=== PATIENT | male | born 1960 | race Caucasian/White ===

== ENCOUNTER → 2017-10-09 | Outpatient (CLI) | payer OTHER ==
[2017-10-09 18:43] LABS: FREE T4 0.97 NG/DL (0.76-1.46)
[2017-10-12 00:07] LABS: TISSUE TRANSGLUTAMINASE IgA <2 U/mL (0-3)
== END ==
LOC: M LAB 16:26
DX: R19.7 Diarrhea, unspecified (principal)
CPT/HCPCS: 84443

== ENCOUNTER → 2017-10-14 | Outpatient (REF) | payer OTHER | LOC: M LAB REF 09:09 | DX: R19.7 Diarrhea, unspecified (principal) ==

== ENCOUNTER 2017-10-25 07:30 | Day surgery (SDC) | payer OTHER ==
[2017-10-25] MEDS: NS 1,000 ML IV (07:55)
[2017-10-25] MEDS ORDERED: PROPOFOL 200 MG/20 ML VIAL As Ordered ×4 (08:23→09:09)
[2017-10-25] MEDS ORDERED: LIDOCAINE 2% INJ 100 MG/5 ML SDV (FOR ANES.) As Ordered (08:23)
[2017-10-25] MEDS ORDERED: SIMETHICONE 40MG/0.6ML DROPS 30ML As Ordered (08:57)
[2017-10-25] MEDS ORDERED: GLUCAGON FOR INJ 1 MG VIAL (J1610) As Ordered (09:09)
== END 2017-10-25 10:11 | disposition home or self-care (01) ==
LOC: M OPP 07:30
DX: K52.9 Noninfective gastroenteritis and colitis, unspecified (principal); D12.2 Benign neoplasm of ascending colon; D12.4 Benign neoplasm of descending colon; K57.30 Diverticulosis of large intestine without perforation or abscess without bleeding; Z86.010 Personal history of colon polyps; K22.8 Other specified diseases of esophagus; K21.0 Gastro-esophageal reflux disease with esophagitis; R12 Heartburn; R11.0 Nausea; I10 Essential (primary) hypertension; E03.9 Hypothyroidism, unspecified; E78.00 Pure hypercholesterolemia, unspecified; Z88.8 Allergy status to other drugs, medicaments and biological substances
CPT/HCPCS: 45385

== ENCOUNTER → 2019-02-25 | Outpatient (CLI) | payer BC ==
[~2019-02-25] MED LIST: LEVO100T5 PO; LISI20TA20 PO; PRAV40TA2 PO; TERA2CAP3 PO
[2019-02-25 10:35] LABS: C REACTIVE PROTEIN QUANTITATIV 2.28 MG/DL (0.00-0.30); RHEUMATOID FACTOR QUANT < 10.0 IU/ML (<15.0)
== END ==
LOC: M SMT 08:31
PROVIDERS: ATTEND Internal Medicine Rheumatology
DX: M25.50 Pain in unspecified joint (principal)

== ENCOUNTER 2019-03-09 10:20 | Emergency (ER) | payer BC ==
[~2019-03-09] VITALS: Ht 182.9 cm; Wt 115.0 kg
[2019-03-09] MEDS ORDERED: PRED20TA PO ×2 (10:38→15:16)
[2019-03-09] MEDS ORDERED: GABA-1171 PO (10:38)
[2019-03-09] MEDS ORDERED: ACETAMINOPHEN 325 MG TAB PO ONE (12:30)
[2019-03-09] MEDS ORDERED: methylPREDNISolone INJ 40 MG/1 ML VIAL (J2920) IV ONE (12:30)
[2019-03-09 13:03] LABS: BASO # 0.1 10^3/uL (0.0-0.2); BASO % 0.4 % (0.0-1.0); EOS % 0.4 % (0.0-3.0); HEMATOCRIT 44.7 % (42.0-52.0); HEMOGLOBIN 14.8 g/dl (13.5-17.5); LYMPH # 2.1 10^3/uL (1.5-5.0); LYMPH % 18.6 % (24.0-44.0); MEAN CORPUSCULAR HEMOGLOBIN 31.7 pg (27.0-33.0); MEAN CORPUSCULAR HGB CONC 33.1 g/dl (32.0-36.5); MEAN CORPUSCULAR VOLUME 95.7 fl (80.0-96.0); MONO % 8.5 % (0.0-5.0); NEUTROPHILS # 7.9 10^3/uL (1.5-8.5); NEUTROPHILS % 70.9 % (36.0-66.0); PLATELET COUNT, AUTOMATED 319 10^3/uL (150-450); RED BLOOD COUNT 4.67 10^6/uL (4.30-6.10); WHITE BLOOD COUNT 11.2 10^3/uL (4.0-10.0)
[2019-03-09 13:11] LABS: BLOOD UREA NITROGEN 27 MG/DL (7-18); C REACTIVE PROTEIN QUANTITATIV 1.25 MG/DL (0.00-0.30); CALCIUM LEVEL 8.8 MG/DL (8.5-10.1); CARBON DIOXIDE LEVEL 28 MEQ/L (21-32); CHLORIDE LEVEL 104 MEQ/L (98-107); CREATININE FOR GFR 0.99 MG/DL (0.70-1.30); GLOMERULAR FILTRATION RATE > 60.0 (>56); GLUCOSE, FASTING 145 MG/DL (70-100); POTASSIUM SERUM 3.9 MEQ/L (3.5-5.1); SODIUM LEVEL 139 MEQ/L (136-145)
[2019-03-09 13:39] LABS: ERYTHROCYTE SEDIMENTATION RATE 25 mm/hr (0-20)
[2019-03-09] MEDS ORDERED: ENDO7.5T11 PO (15:12)
[2019-03-09 15:34] VITALS: BP 140/86
== END 2019-03-09 16:13 | disposition home or self-care (01) ==
LOC: M ED 10:20
DX: M13.0 Polyarthritis, unspecified (principal); I10 Essential (primary) hypertension; E03.9 Hypothyroidism, unspecified; Z79.899 Other long term (current) drug therapy; Z88.1 Allergy status to other antibiotic agents
CPT/HCPCS: 36415; 80048; 85025; 85652; 86140; 96374; 97161; 97530; 99284; J2920

== ENCOUNTER → 2019-05-11 | Outpatient (REF) | payer BC ==
[~2019-05-11] MED LIST changes: +ENDO7.5T11 PO; +GABA-1171 PO; +PRED20TA PO
[2019-05-11 12:52] LABS: BASO # 0.1 10^3/uL (0.0-0.2); BASO % 0.4 % (0.0-1.0); HEMATOCRIT 47.4 % (42.0-52.0); HEMOGLOBIN 15.3 g/dl (13.5-17.5); LYMPH % 6.9 % (24.0-44.0); MEAN CORPUSCULAR HEMOGLOBIN 31.1 pg (27.0-33.0); MEAN CORPUSCULAR HGB CONC 32.3 g/dl (32.0-36.5); MEAN CORPUSCULAR VOLUME 96.3 fl (80.0-96.0); MONO # 0.6 10^3/uL (0.0-0.8); NEUTROPHILS % 86.8 % (36.0-66.0); PLATELET COUNT, AUTOMATED 242 10^3/uL (150-450); RED BLOOD COUNT 4.92 10^6/uL (4.30-6.10); WHITE BLOOD COUNT 13.8 10^3/uL (4.0-10.0)
[2019-05-11 13:23] LABS: ERYTHROCYTE SEDIMENTATION RATE 7 mm/hr (0-20)
[2019-05-11 13:32] LABS: ALT/SGPT 31 U/L (12-78); BLOOD UREA NITROGEN 22 MG/DL (7-18); CALCIUM LEVEL 8.6 MG/DL (8.5-10.1); CARBON DIOXIDE LEVEL 29 MEQ/L (21-32); CHLORIDE LEVEL 102 MEQ/L (98-107); CPK CREATINE PHOSPHOKINASE 73 U/L (39-308); CREATININE FOR GFR 0.89 MG/DL (0.70-1.30); GLOMERULAR FILTRATION RATE > 60.0 (>56); GLUCOSE, FASTING 184 MG/DL (70-100); POTASSIUM SERUM 4.2 MEQ/L (3.5-5.1); SODIUM LEVEL 138 MEQ/L (136-145)
[2019-05-11 13:33] LABS: ALBUMIN 3.6 GM/DL (3.2-5.2); BILIRUBIN,TOTAL 0.4 MG/DL (0.2-1.0); C REACTIVE PROTEIN QUANTITATIV 0.46 MG/DL (0.00-0.30); THYROID STIMULATING HORMONE 0.486 uIU/ML (0.358-3.740); TOTAL PROTEIN 7.3 GM/DL (6.4-8.2)
== END ==
LOC: M SFHCRHEU 09:12
PROVIDERS: ATTEND Internal Medicine Rheumatology
DX: M35.3 Polymyalgia rheumatica (principal); M25.50 Pain in unspecified joint

== ENCOUNTER → 2020-12-20 | Outpatient (CLI) | payer BC ==
[~2020-12-20] MED LIST changes: +METHACHOLINE KIT (J7674) INH ONE
--- NOTE | 2020-12-20 13:58 | PFTRPT ---
Site: [facility], [address] [place], [address] ID: [id number] Name: YOSI KULKARNI Visit Date: 12/20/2020 Second ID: [id number] Referring Doctor: DEEPIKA Simpson, Jonathon Catalan Reviewing Doctor: Orion Saldivar MD Cylinder Press Operator Apprentice: Rowdy IYER RRT Age: 60 : 1960 Sex: Male Race: Height: 72.00 Inches Weight: 255.00 Lbs BSA: 2.36 Order IDs: [id number] Requested Test(s): <RESP-PFT.METH CHAL> Diagnosis: R06.00 of albuterol for post bronchodilator. Review Status: Not Reviewed Pre-Bronch Post-Bronch Pred Actual %Pred Actual %Chng SPIROMETRY FVC (L) 5.13 4.00 77 4.01 FEV1 (L) 3.89 3.37 86 3.28 -2 FEV1/FVC (%) 76 84 110 82 -2 FEF 25% (L/sec) 8.34 7.01 84 6.89 -1 FEF 50% (L/sec) 5.04 4.11 81 3.64 -11 FEF 75% (L/sec) 1.63 1.71 104 1.47 -14 FEF 25-75% (L/sec) 3.20 3.56 111 3.17 -11 FEF Max (L/sec) 9.73 9.45 97 8.86 -6 FIVC (L) 3.48 4.09 17 FIF 50% (L/sec) 4.74 4.94 104 6.95 40 FIF Max (L/sec) 5.86 7.00 19 Expiratory Time (sec) 5.60 4.39 -21 Back Extrap Vol (L) 0.10 0.12 16 Time To FEFmax (sec) 0.067 0.068 2
== END ==
LOC: M CARPUL 07:37
PROVIDERS: ATTEND Physician Assistant
DX: R06.00 Dyspnea, unspecified (principal)
CPT/HCPCS: 94070; J7674

== ENCOUNTER → 2021-02-16 | Outpatient (CLI) | payer BC ==
[~2021-02-16] MED LIST changes: +ATOR40TA75 PO; +HUMI40IN2 SC; -METHACHOLINE KIT (J7674) INH ONE
== END ==
LOC: M LABSMTC 10:16
PROVIDERS: ATTEND Anesthesiology
DX: Z01.812 Encounter for preprocedural laboratory examination (principal); Z20.822 Contact with and (suspected) exposure to COVID-19

== ENCOUNTER 2021-02-21 08:25 | Day surgery (SDC) | payer BC ==
[~2021-02-21] VITALS: Ht 182.9 cm; Wt 115.1 kg
[~2021-02-21 08:25] MED LIST changes: +NS 1,000 ML IV ONE
--- NOTE | 2021-02-21 10:00 | ROOR ---
Patient Name: Mike Armijo Procedure Date: 02/21/2021 9:40 AM Date of : 1960 Age: 60 Room: [facility] Gender: Male Note Status: Finalized Procedure: Colonoscopy Indications: High risk colon cancer surveillance: Personal history of colonic polyps, Last colonoscopy: October 2017 Providers: Cipriano Cabrales MD Referring MD: REGINALDO ROSAS Requesting Provider: Medicines: Monitored Anesthesia Care Complications: No immediate complications. Procedure: Pre-Anesthesia Assessment: - The heart rate, respiratory rate, oxygen saturations, blood pressure, adequacy of pulmonary ventilation, and response to care were monitored throughout the procedure. The Colonoscope was introduced through the anus and advanced to the terminal ileum, with identification of the appendiceal orifice and IC valve. The colonoscopy was performed without difficulty. The patient tolerated the procedure well. The quality of the bowel preparation was good. Findings: The perianal and digital rectal examinations were normal. Two sessile polyps were found in the sigmoid colon and descending colon. The polyps were 4 to 5 mm in size. These polyps were removed with a cold snare. Resection and retrieval were complete. Multiple small and large-mouthed diverticula were found in the sigmoid colon. Non-bleeding internal hemorrhoids were found during retroflexion. The hemorrhoids were medium-sized. The exam was otherwise without abnormality on direct and retroflexion views. Impression: - Two 4 to 5 mm polyps in the sigmoid colon and in the descending colon, removed with a cold snare. Resected and retrieved. - Diverticulosis in the sigmoid colon. - Non-bleeding internal hemorrhoids. - The examination was otherwise normal on direct and retroflexion views. Recommendation: - Repeat colonoscopy in 5 years for surveillance. Procedure Code(s): --- Professional --- 88671, Colonoscopy, flexible; with removal of tumor(s), polyp(s), or other lesion(s) by snare technique Diagnosis Code(s): --- Professional --- K57.30, Diverticulosis of large intestine without perforation or abscess without bleeding K64.8, Other hemorrhoids K63.5, Polyp of colon Z86.010, Personal history of colonic polyps CPT copyright 2019 [employer]. All rights reserved. The codes documented in this report are preliminary and upon television mechanic review may be revised to meet current compliance requirements. Cipriano Cabrales MD Cipriano Cabrales MD 02/21/2021 9:59:33 AM Electronically signed by Cipriano Cabrales MD Number of Addenda: 0 Note Initiated On: 02/21/2021 9:40 AM Estimated Blood Loss: Estimated blood loss: none.
[2021-02-21] MEDS ORDERED: LIDOCAINE 2% 100MG/5ML SDV (FOR ANES.) As Ordered ONE (10:08)
[2021-02-21] MEDS ORDERED: propofoL 200 MG/20 ML VIAL As Ordered ONE (10:08)
[2021-02-21 10:34] VITALS: BP 142/96
== END 2021-02-21 10:36 | disposition home or self-care (01) ==
LOC: M OPP 08:25
PROVIDERS: ATTEND Internal Medicine Gastroenterology
DX: Z12.11 Encounter for screening for malignant neoplasm of colon (principal); Z86.010 Personal history of colon polyps; D12.4 Benign neoplasm of descending colon; D12.5 Benign neoplasm of sigmoid colon; K57.30 Diverticulosis of large intestine without perforation or abscess without bleeding; K64.8 Other hemorrhoids; Z79.899 Other long term (current) drug therapy; Z88.8 Allergy status to other drugs, medicaments and biological substances; Z87.891 Personal history of nicotine dependence

== ENCOUNTER → 2021-03-30 | Outpatient (CLI) | payer BC ==
[~2021-03-30] MED LIST changes: -NS 1,000 ML IV ONE
== END ==
LOC: M LABSMTC 11:06
PROVIDERS: ATTEND Anesthesiology
DX: Z01.818 Encounter for other preprocedural examination (principal); Z11.52 Encounter for screening for COVID-19

== ENCOUNTER → 2021-05-04 | Outpatient (CLI) | payer BC | LOC: M LABSMTC 10:04 | PROVIDERS: ATTEND Anesthesiology | DX: Z01.812 Encounter for preprocedural laboratory examination (principal); Z20.822 Contact with and (suspected) exposure to COVID-19 ==

== ENCOUNTER 2021-05-09 09:55 | Day surgery (SDC) | payer BC ==
[~2021-05-09] VITALS: Ht 182.9 cm; Wt 113.9 kg
[~2021-05-09 09:55] MED LIST changes: -LISI20TA20 PO; +LISI20TA37 PO; +LR 1,000 ML IV ONE; +ceFAZolin SOD 2 GM in IV 1 EA IV ONE
[2021-05-09] MEDS ORDERED: METH2.5T48 PO (11:07)
[2021-05-09] MEDS ORDERED: LIDOCAINE 2% 100MG/5ML SDV (FOR ANES.) As Ordered ONE ×2 (12:56→13:20)
[2021-05-09] MEDS ORDERED: propofoL 200 MG/20 ML VIAL As Ordered ONE (13:07)
[2021-05-09] MEDS ORDERED: ROCURONIUM BROMIDE 50 MG/5 ML VIAL As Ordered ONE (13:08)
[2021-05-09] MEDS ORDERED: ONDANSETRON 4MG/2ML VIAL As Ordered ONE (13:08)
[2021-05-09] MEDS ORDERED: MIDAZOLAM INJ 2MG/2ML VIAL (J2250 PER 1MG) As Ordered ONE (13:08)
[2021-05-09] MEDS ORDERED: fentaNYL 100 MCG/2 ML INJECTION As Ordered ONE (13:08)
[2021-05-09] MEDS ORDERED: dexameTHASONE 4 MG/ML 1ML VIAL (J1100 PER 1MG) As Ordered ONE (13:08)
[2021-05-09] MEDS ORDERED: KETOROLAC 60MG 2ML VIAL As Ordered ONE (13:21)
[2021-05-09] MEDS ORDERED: BUPIVACAINE LIPOSOME/PF 1.3% 20ML VIAL (13.3MG/ML)(EXPAREL)(C9290 PER1MG) As Ordered ONE (13:51)
[2021-05-09] MEDS ORDERED: BUPIVACAINE HCL 0.25% 10ML VIAL As Ordered ONE (13:51)
[2021-05-09] MEDS ORDERED: ACETAMINOPHEN 1000MG 100ML IV BTL (OFIRMEV) (J0131 PER 10MG) As Ordered ONE (14:36)
[2021-05-09] MEDS ORDERED: SUGAMMADEX SODIUM 500 MG/5 ML VIAL (BRIDION) As Ordered ONE (14:42)
[2021-05-09] MEDS ORDERED: PERCOCET 5MG/325MG TAB PO PRN (15:15)
[2021-05-09] MEDS ORDERED: fentaNYL 100 MCG/2 ML INJECTION IV PRN (15:15)
[2021-05-09] MEDS ORDERED: LR 1,000 ML IV SCH (15:15)
[2021-05-09] MEDS ORDERED: HYDROMORPHONE HCL 0.5 MG/ 0.5 ML SYRINGE (J1170 PER 1) IV PRN (15:15)
[2021-05-09] MEDS ORDERED: ONDANSETRON 4MG/2ML VIAL IV PRN (15:15)
[2021-05-09] MEDS ORDERED: oxyCODONE 5MG TAB PO PRN (15:15)
[2021-05-09] MEDS ORDERED: NS 1,000 ML IV SCH (15:15)
[2021-05-09 16:55] VITALS: BP 142/88
== END 2021-05-09 17:00 | disposition home or self-care (01) ==
LOC: M SDC 09:55
PROVIDERS: ATTEND Surgery
DX: K42.9 Umbilical hernia without obstruction or gangrene (principal); I10 Essential (primary) hypertension; E03.9 Hypothyroidism, unspecified; E78.5 Hyperlipidemia, unspecified; Z79.899 Other long term (current) drug therapy; Z88.8 Allergy status to other drugs, medicaments and biological substances
CPT/HCPCS: 49585; 88302; C9290; J0131; J0690; J1100; J1885; J2250; J2405; J3010

== ENCOUNTER → 2021-10-02 | Outpatient (CLI) | payer BC ==
[~2021-10-02] MED LIST changes: -LR 1,000 ML IV ONE; +METH2.5T48 PO; -ceFAZolin SOD 2 GM in IV 1 EA IV ONE
== END ==
LOC: M PLAIMG 12:43
PROVIDERS: ATTEND Physician Assistant
DX: R91.8 Other nonspecific abnormal finding of lung field (principal)

== ENCOUNTER → 2023-01-18 | Outpatient (CLI) | payer BC ==
[2023-01-18 19:07] LABS: HEMATOCRIT 40.7 % (42.0-52.0); HEMOGLOBIN 13.9 g/dl (13.5-17.5); MEAN CORPUSCULAR HEMOGLOBIN 32.6 pg (27.0-33.0); MEAN CORPUSCULAR HGB CONC 34.2 g/dl (32.0-36.5); MEAN CORPUSCULAR VOLUME 95.5 fl (80.0-96.0); PLATELET COUNT, AUTOMATED 183 10^3/uL (150-450); RED BLOOD COUNT 4.26 10^6/uL (4.30-6.10); WHITE BLOOD COUNT 5.7 10^3/uL (4.0-10.0)
[2023-01-18 19:28] LABS: ALBUMIN 3.2 G/DL (3.2-5.2); ALKALINE PHOSPHATASE 175 U/L (46-116); ALT/SGPT 146 U/L (7.0-40); AST/SGOT 99 U/L (<34); BILIRUBIN,TOTAL 0.7 MG/DL (0.3-1.2); BLOOD UREA NITROGEN 19 MG/DL (9-23); CALCIUM LEVEL 8.8 MG/DL (8.3-10.6); CARBON DIOXIDE LEVEL 31 MMOL/L (20-31); CHLORIDE LEVEL 101 MMOL/L (98-107); CREATININE FOR GFR 1.03 MG/DL (0.70-1.30); GLOMERULAR FILTRATION RATE > 60.0 (>49); GLUCOSE, FASTING 132 MG/DL (74-106); SODIUM LEVEL 141 MMOL/L (136-145); TOTAL PROTEIN 6.7 G/DL (5.7-8.2)
== END ==
LOC: M WUC 15:26
PROVIDERS: ATTEND Physician Assistant
DX: S90.562S Insect bite (nonvenomous), left ankle, sequela (principal); R61 Generalized hyperhidrosis; R79.82 Elevated C-reactive protein (CRP)

== ENCOUNTER → 2023-02-13 | Outpatient (CLI) | payer BC | LOC: M WUC 11:48 | PROVIDERS: ATTEND Physician Assistant | DX: S23.41XA Sprain of ribs, initial encounter (principal); W18.30XA Fall on same level, unspecified, initial encounter; Y92.009 Unspecified place in unspecified non-institutional (private) residence as the place of occurrence of the external cause ==

== ENCOUNTER 2023-03-11 17:57 | Inpatient (IN) | payer BC ==
[~2023-03-11] VITALS: Ht 182.9 cm; Wt 98.8 kg
[2023-03-11 19:42] LABS: VENOUS BASE EXCESS 1.6 (-2.0-2.0); VENOUS HCO3 27.8 MMOL/L (23.0-27.0); VENOUS O2 SATURATION 72.5 % (60.0-80.0); VENOUS PARTIAL PRESSURE CO2 49.5 mmHg (38.0-50.0); VENOUS PARTIAL PRESSURE O2 39.4 mmHg (30.0-50.0); VENOUS PH 7.367 UNITS (7.330-7.430); VENOUS STANDARD HCO3 25.3 MMOL/L; VENOUS TOTAL CO2 29.3 MMOL/L (24.0-28.0)
[2023-03-11] MEDS ORDERED: HYDROMORPHONE HCL 0.5 MG/ 0.5 ML SYRINGE IV PRN (19:45)
[2023-03-11 19:47] LABS: BASO # 0.1 10^3/uL (0.0-0.2); BASO % 0.4 % (0.0-1.0); EOS # 0.2 10^3/uL (0.0-0.5); EOS % 1.3 % (0.0-3.0); HEMATOCRIT 40.9 % (42.0-52.0); LYMPH # 3.1 10^3/uL (1.5-5.0); LYMPH % 25.7 % (24.0-44.0); MEAN CORPUSCULAR HEMOGLOBIN 32.6 pg (27.0-33.0); MEAN CORPUSCULAR HGB CONC 34.2 g/dl (32.0-36.5); MEAN CORPUSCULAR VOLUME 95.1 fl (80.0-96.0); MONO # 0.9 10^3/uL (0.0-0.8); MONO % 7.1 % (2.0-8.0); NEUTROPHILS # 7.8 10^3/uL (1.5-8.5); NEUTROPHILS % 64.9 % (36.0-66.0); PLATELET COUNT, AUTOMATED 245 10^3/uL (150-450); WHITE BLOOD COUNT 12.1 10^3/uL (4.0-10.0)
[2023-03-11 20:02] LABS: INR 1.08; PROTHROMBIN TIME 13.7 SECONDS (12.5-14.5)
[2023-03-11 20:18] LABS: CK-MB VALUE MASS 1.8 NG/ML (<3.6)
[2023-03-11 20:20] LABS: CPK CREATINE PHOSPHOKINASE 83 U/L (46-171); MB/CK RELATIVE INDEX 2.16 (< OR =4)
[2023-03-11 20:21] LABS: ALBUMIN 2.9 G/DL (3.2-5.2); ALKALINE PHOSPHATASE 69 U/L (46-116); ALT/SGPT 33 U/L (7.0-40); AST/SGOT 23 U/L (<34); BILIRUBIN,DIRECT 0.3 MG/DL (<0.4); BILIRUBIN,TOTAL 0.9 MG/DL (0.3-1.2); BLOOD UREA NITROGEN 18 MG/DL (9-23); CALCIUM LEVEL 8.5 MG/DL (8.3-10.6); CARBON DIOXIDE LEVEL 33 MMOL/L (20-31); CHLORIDE LEVEL 100 MMOL/L (98-107); CREATININE FOR GFR 0.66 MG/DL (0.70-1.30); GLOMERULAR FILTRATION RATE > 60.0 (>49); GLUCOSE, FASTING 150 MG/DL (74-106); POTASSIUM SERUM 3.7 MMOL/L (3.5-5.1); SODIUM LEVEL 138 MMOL/L (136-145); TOTAL PROTEIN 6.7 G/DL (5.7-8.2)
[2023-03-11 20:23] LABS: THYROID STIMULATING HORMONE 1.307 uIU/ML (0.55-4.78)
[2023-03-11 20:27] LABS: PROCALCITONIN <0.04 ng/ml
[2023-03-11] MEDS ORDERED: ONDANSETRON 4MG 2ML VIAL IV ONE (20:40)
[2023-03-11 21:03] LABS: ERYTHROCYTE SEDIMENTATION RATE 61 mm/hr (0-20)
[2023-03-11 22:29] LABS: CK-MB VALUE MASS 1.3 NG/ML (<3.6)
[2023-03-11 22:32] LABS: MB/CK RELATIVE INDEX 1.75 (< OR =4)
[2023-03-12] VITALS (7 sets, daily range): BP systolic 138–190; BP diastolic 88–125; TEMP 98.1–98.8; O2SAT 90–98
[2023-03-12] MEDS ORDERED: ACETAMINOPHEN TAB 650MG DOSE (2X325MG) PO PRN (00:30)
[2023-03-12] MEDS: HYDROmorphone 2 MG TAB PO PRN ×2 (01:10→06:50)
[2023-03-12] MEDS ORDERED: CYCL5TAB PO (01:27)
[2023-03-12] MEDS ORDERED: IBUP1TAB7 PO (01:27)
[2023-03-12] MEDS ORDERED: DOXY100T PO (01:27)
[2023-03-12] MEDS ORDERED: GABA-282 PO (01:27)
[2023-03-12] MEDS ORDERED: FOLI1TAB11 PO (01:27)
[2023-03-12] MEDS ORDERED: METH2.5T48 PO (01:27)
[2023-03-12] MEDS ORDERED: HOME MED LIST COMPLETE! XX SCH (01:30)
[2023-03-12] MEDS ORDERED: CYCLOBENZAPRINE 5MG TABLET PO PRN (02:00)
[2023-03-12] MEDS ORDERED: HYDROMORPHONE HCL 0.5 MG/ 0.5 ML SYRINGE IV ONE (02:30)
[2023-03-12] MEDS: DOXYCYCLINE HYCLATE 100MG TABLET PO SCH ×2 (04:56→20:09)
[2023-03-12] MEDS: LEVOTHYROXINE 100MCG TABLET (0.1MG) PO SCH (04:56)
[2023-03-12] MEDS ORDERED: ACETAMINOPHEN *IV* 1,000 MG in IV 1 EA IV ONE (05:00)
[2023-03-12] MEDS ORDERED: MORPHINE 10 MG/ML 1ML VIAL IV ONE (06:00)
[2023-03-12 06:13] LABS: BLOOD UREA NITROGEN 16 MG/DL (9-23); CALCIUM LEVEL 8.4 MG/DL (8.3-10.6); CARBON DIOXIDE LEVEL 32 MMOL/L (20-31); CHLORIDE LEVEL 98 MMOL/L (98-107); CREATININE FOR GFR 0.66 MG/DL (0.70-1.30); GLOMERULAR FILTRATION RATE > 60.0 (>49); GLUCOSE, FASTING 160 MG/DL (74-106); POTASSIUM SERUM 4.1 MMOL/L (3.5-5.1); SODIUM LEVEL 134 MMOL/L (136-145)
[2023-03-12 06:24] LABS: CK-MB VALUE MASS 2.6 NG/ML (<3.6)
[2023-03-12 06:27] LABS: MB/CK RELATIVE INDEX 3.2 (< OR =4)
[2023-03-12 08:27] LABS: BASO # 0.1 10^3/uL (0.0-0.2); BASO % 0.7 % (0.0-1.0); EOS # 0.3 10^3/uL (0.0-0.5); EOS % 2.7 % (0.0-3.0); HEMATOCRIT 41.7 % (42.0-52.0); HEMOGLOBIN 14.1 g/dl (13.5-17.5); LYMPH # 3.8 10^3/uL (1.5-5.0); MEAN CORPUSCULAR HEMOGLOBIN 32.4 pg (27.0-33.0); MEAN CORPUSCULAR HGB CONC 33.8 g/dl (32.0-36.5); MEAN CORPUSCULAR VOLUME 95.9 fl (80.0-96.0); MONO # 0.9 10^3/uL (0.0-0.8); MONO % 8.2 % (2.0-8.0); NEUTROPHILS # 6.1 10^3/uL (1.5-8.5); NEUTROPHILS % 54.1 % (36.0-66.0); PLATELET COUNT, AUTOMATED 242 10^3/uL (150-450); RED BLOOD COUNT 4.35 10^6/uL (4.30-6.10); WHITE BLOOD COUNT 11.3 10^3/uL (4.0-10.0)
[2023-03-12 08:40] LABS: ERYTHROCYTE SEDIMENTATION RATE 57 mm/hr (0-20)
[2023-03-12] MEDS ORDERED: ISOVUE-370 76% 100ML VIAL As Ordered ONE (08:58)
[2023-03-12] MEDS ORDERED: DOCUSATE SODIUM 100MG CAPSULE PO SCH (09:00)
[2023-03-12 09:25] LABS: CK-MB VALUE MASS 1.3 NG/ML (<3.6)
[2023-03-12 09:30] LABS: MB/CK RELATIVE INDEX 1.6 (< OR =4)
[2023-03-12] MEDS: ATORVASTATIN 20 MG TAB PO SCH (09:44)
[2023-03-12] MEDS: FOLIC ACID 1MG TAB PO SCH (09:45)
[2023-03-12] MEDS: GABAPENTIN 100 MG CAP PO SCH ×2 (09:46→20:10)
[2023-03-12] MEDS: predniSONE 20 MG TAB PO SCH (09:51)
[2023-03-12] MEDS: TERAZOSIN 1 MG CAP PO SCH (10:58)
[2023-03-12] MEDS: PERCOCET 5MG/325MG TAB PO PRN ×2 (11:04→18:38)
[2023-03-12 11:44] LABS: CK-MB VALUE MASS 1.3 NG/ML (<3.6)
[2023-03-12] MEDS ORDERED: BISACODYL 10MG SUPP PR ONE (11:45)
[2023-03-12 11:47] LABS: MB/CK RELATIVE INDEX 1.66 (< OR =4)
[2023-03-12] MEDS: MIRALAX *UNIT DOSE* 17GM PACKET PO SCH ×2 (12:43→20:10)
[2023-03-12] MEDS: MOM 30ML SUSPENSION UDC PO SCH ×2 (12:43→20:09)
[2023-03-12] MEDS: SENOKOT S TAB PO SCH ×2 (12:43→20:09)
[2023-03-12] MEDS: HEPARIN SOD (PORCINE) 5000UNITS/ML 1ML VIAL/SYRINGE SQ SCH ×2 (15:15→20:10)
[2023-03-13] MEDS: PERCOCET 5MG/325MG TAB PO PRN ×3 (00:31→14:45)
[2023-03-13] MEDS: LEVOTHYROXINE 100MCG TABLET (0.1MG) PO SCH (05:36)
[2023-03-13] MEDS: HEPARIN SOD (PORCINE) 5000UNITS/ML 1ML VIAL/SYRINGE SQ SCH ×2 (05:37→13:27)
[2023-03-13 06:00] VITALS: BP 113/77; TEMP 97; O2SAT 98
[2023-03-13 06:33] LABS: HEMOGLOBIN 13.3 g/dl (13.5-17.5); MEAN CORPUSCULAR HEMOGLOBIN 33.3 pg (27.0-33.0); PLATELET COUNT, AUTOMATED 263 10^3/uL (150-450); WHITE BLOOD COUNT 12.1 10^3/uL (4.0-10.0)
[2023-03-13 06:59] LABS: BLOOD UREA NITROGEN 19 MG/DL (9-23); CALCIUM LEVEL 8.2 MG/DL (8.3-10.6); CARBON DIOXIDE LEVEL 30 MMOL/L (20-31); CHLORIDE LEVEL 98 MMOL/L (98-107); CREATININE FOR GFR 0.74 MG/DL (0.70-1.30); GLOMERULAR FILTRATION RATE > 60.0 (>49); GLUCOSE, FASTING 115 MG/DL (74-106); MAGNESIUM LEVEL 2.1 MG/DL (1.8-2.4); POTASSIUM SERUM 3.6 MMOL/L (3.5-5.1); SODIUM LEVEL 135 MMOL/L (136-145)
[2023-03-13 07:27] LABS: EOSINOPHILS 2 % (0-3); LYMPHOCYTES 30 % (16-44); MONOCYTES 13 % (0-5); NEUTROPHILS 54 % (28-66)
[2023-03-13 07:28] LABS: PLATELET ESTIMATE NORMAL (NORMAL)
[2023-03-13 07:29] LABS: ANISOCYTOSIS 1+; HYPOCHROMASIA 1+
[2023-03-13 07:30] LABS: OVALOCYTES 1+; POIKILOCYTOSIS 1+
[2023-03-13 08:47] VITALS: BP 120/80
[2023-03-13] MEDS: TERAZOSIN 1 MG CAP PO SCH (08:47)
[2023-03-13] MEDS: ATORVASTATIN 20 MG TAB PO SCH (08:48)
[2023-03-13] MEDS: SENOKOT S TAB PO SCH (08:48)
[2023-03-13] MEDS: GABAPENTIN 100 MG CAP PO SCH (08:48)
[2023-03-13] MEDS: FOLIC ACID 1MG TAB PO SCH (08:48)
[2023-03-13] MEDS: predniSONE 20 MG TAB PO SCH (08:48)
[2023-03-13] MEDS: MIRALAX *UNIT DOSE* 17GM PACKET PO SCH (08:48)
[2023-03-13] MEDS: MOM 30ML SUSPENSION UDC PO SCH (08:48)
[2023-03-13] MEDS: DOXYCYCLINE HYCLATE 100MG TABLET PO SCH (08:48)
[2023-03-13] MEDS ORDERED: OXYC1TAB23 PO (10:13)
[2023-03-13] MEDS ORDERED: DOXY100T PO (10:13)
[2023-03-13] MEDS ORDERED: PRED10TA2 PO (10:13)
[2023-03-13 14:00] VITALS: BP 107/77; TEMP 98.4; O2SAT 93
[2023-03-15] MEDS ORDERED: GABAPENTIN 100 MG CAP PO SCH (09:00)
== END 2023-03-13 15:02 | disposition home or self-care (01) | DRG 346 ==
LOC: M ED 17:57 → EDBD 17:57 → M ED INP 03-12 00:28 → M MSPAV 03-12 04:34
PROVIDERS: ADMIT Internal Medicine; ATTEND Internal Medicine
DX: M06.9 Rheumatoid arthritis, unspecified (principal); I10 Essential (primary) hypertension; A69.22 Other neurologic disorders in Lyme disease; E03.9 Hypothyroidism, unspecified; M45.2 Ankylosing spondylitis of cervical region; R07.9 Chest pain, unspecified; Z88.8 Allergy status to other drugs, medicaments and biological substances; Z79.899 Other long term (current) drug therapy; E78.00 Pure hypercholesterolemia, unspecified

== ENCOUNTER 2023-03-21 11:10 | Outpatient (CLI) | payer BC ==
[~2023-03-21] VITALS: Ht 182.9 cm; Wt 101.1 kg
[~2023-03-21 11:10] MED LIST changes: +CYCL5TAB PO; +DOXY100T PO; +FOLI1TAB11 PO; +GABA-282 PO; +IBUP1TAB7 PO; +OXYC1TAB23 PO; +PRED10TA2 PO
[2023-03-21 11:42] LABS: BASO # 0.1 10^3/uL (0.0-0.2); BASO % 0.8 % (0.0-1.0); EOS % 0.1 % (0.0-3.0); HEMATOCRIT 39.2 % (42.0-52.0); HEMOGLOBIN 13.5 g/dl (13.5-17.5); LYMPH # 2.2 10^3/uL (1.5-5.0); MEAN CORPUSCULAR HEMOGLOBIN 32.8 pg (27.0-33.0); MEAN CORPUSCULAR HGB CONC 34.4 g/dl (32.0-36.5); MEAN CORPUSCULAR VOLUME 95.4 fl (80.0-96.0); MONO # 0.5 10^3/uL (0.0-0.8); MONO % 6.3 % (2.0-8.0); NEUTROPHILS # 4.6 10^3/uL (1.5-8.5); NEUTROPHILS % 61.6 % (36.0-66.0); PLATELET COUNT, AUTOMATED 298 10^3/uL (150-450); RED BLOOD COUNT 4.11 10^6/uL (4.30-6.10); WHITE BLOOD COUNT 7.4 10^3/uL (4.0-10.0)
[2023-03-21 11:51] LABS: ERYTHROCYTE SEDIMENTATION RATE 58 mm/hr (0-20)
[2023-03-22 12:00] VITALS: BP 109/67; O2SAT 98
== END 2023-03-21 12:21 ==
LOC: M INFU 11:10
PROVIDERS: ATTEND Internal Medicine Infectious Disease
DX: A69.20 Lyme disease, unspecified (principal); Z88.6 Allergy status to analgesic agent

== ENCOUNTER 2023-03-21 11:34 | Outpatient (CLI) | payer BC ==
[~2023-03-21] VITALS: Ht 182.9 cm; Wt 101.1 kg
[2023-03-21 11:15] VITALS: BP 154/93; O2SAT 95
[2023-03-21] MEDS ORDERED: cefTRIAXone SOD 2 GM in D5W MINI-BAG PLUS 50 ML IV ONE (12:00)
[2023-03-21 12:21] VITALS: BP_SYST 154; BP_SYST 159; BP_DIAS 76; BP_DIAS 89; O2SAT 96; O2SAT 97
== END 2023-03-21 12:21 ==
LOC: M INFU 11:34
PROVIDERS: ATTEND Internal Medicine Infectious Disease
DX: A69.20 Lyme disease, unspecified (principal); Z88.6 Allergy status to analgesic agent
CPT/HCPCS: 36592; 85025; 85652; 86140; 96365; J0696

== ENCOUNTER 2023-03-22 11:30 | Outpatient (CLI) | payer BC ==
[~2023-03-22] VITALS: Ht 182.9 cm; Wt 101.1 kg
[2023-03-22 12:00] VITALS: BP 109/67; O2SAT 98
[2023-03-22] MEDS ORDERED: cefTRIAXone SOD 2 GM in D5W MINI-BAG PLUS 50 ML IV ONE (12:00)
[2023-03-22 13:24] VITALS: BP 117/75; O2SAT 96
== END 2023-03-22 13:30 ==
LOC: M INFU 11:30
PROVIDERS: ATTEND Internal Medicine Infectious Disease
DX: A69.20 Lyme disease, unspecified (principal); Z88.6 Allergy status to analgesic agent
CPT/HCPCS: 96365; J0696

== ENCOUNTER 2023-03-23 10:07 | Outpatient (CLI) | payer BC ==
[2023-03-23] MEDS ORDERED: cefTRIAXone SOD 2 GM in D5W MINI-BAG PLUS 50 ML IV ONE (11:00)
== END 2023-03-23 11:16 | disposition home or self-care (01) ==
LOC: M OPCLI4PV 10:07 → M MSPAV 10:11 → M OPCLI4PV 11:16
PROVIDERS: ATTEND Internal Medicine Infectious Disease
DX: A69.20 Lyme disease, unspecified (principal); Z88.6 Allergy status to analgesic agent
CPT/HCPCS: 96365; J0696

== ENCOUNTER 2023-03-24 10:10 | Outpatient (CLI) | payer BC ==
[~2023-03-24] VITALS: Ht 182.9 cm; Wt 100.0 kg
[2023-03-24 10:18] VITALS: BP 135/84; O2SAT 94
[2023-03-24] MEDS ORDERED: cefTRIAXone SOD 2 GM in D5W MINI-BAG PLUS 50 ML IV ONE (11:00)
[2023-03-24 11:20] VITALS: BP 148/84; O2SAT 96
== END 2023-03-24 11:20 | disposition home or self-care (01) ==
LOC: M OPCLI4PR 10:10 → M MS4PR 10:14 → M OPCLI4PR 11:20
PROVIDERS: ATTEND Internal Medicine Infectious Disease
DX: A69.20 Lyme disease, unspecified (principal); Z88.6 Allergy status to analgesic agent
CPT/HCPCS: 96365; J0696

== ENCOUNTER 2023-03-25 11:35 | Outpatient (CLI) | payer BC ==
[~2023-03-25] VITALS: Ht 182.9 cm; Wt 100.0 kg
[2023-03-25 11:35] VITALS: BP 143/93; O2SAT 20
[~2023-03-25 11:35] MED LIST changes: +cefTRIAXone SOD 2 GM in D5W MINI-BAG PLUS 50 ML IV ONE
[2023-03-25 12:30] VITALS: BP 120/88; O2SAT 98
== END 2023-03-25 12:30 | disposition home or self-care (01) ==
LOC: M INFU 11:35
PROVIDERS: ATTEND Internal Medicine Infectious Disease
DX: A69.20 Lyme disease, unspecified (principal); Z88.8 Allergy status to other drugs, medicaments and biological substances
CPT/HCPCS: 96365; J0696

== ENCOUNTER 2023-03-26 12:45 | Outpatient (CLI) | payer BC ==
[~2023-03-26] VITALS: Ht 182.9 cm; Wt 101.1 kg
[2023-03-26 12:45] VITALS: BP 130/86; O2SAT 96
== END 2023-03-26 13:35 ==
LOC: M INFU 12:45
PROVIDERS: ATTEND Internal Medicine Infectious Disease
DX: A69.20 Lyme disease, unspecified (principal); Z88.8 Allergy status to other drugs, medicaments and biological substances
CPT/HCPCS: 96365; J0696

== ENCOUNTER 2023-03-27 12:45 | Outpatient (CLI) | payer BC ==
[~2023-03-27] VITALS: Ht 182.9 cm; Wt 101.1 kg
[~2023-03-27 12:45] MED LIST changes: -cefTRIAXone SOD 2 GM in D5W MINI-BAG PLUS 50 ML IV ONE
[2023-03-27 13:00] VITALS: BP 172/93; O2SAT 95
[2023-03-27] MEDS ORDERED: cefTRIAXone SOD 2 GM in D5W MINI-BAG PLUS 50 ML IV ONE (13:00)
[2023-03-27 13:34] VITALS: BP 154/94; O2SAT 95
== END 2023-03-27 16:00 ==
LOC: M INFU 12:45
PROVIDERS: ATTEND Internal Medicine Infectious Disease
DX: A69.20 Lyme disease, unspecified (principal); Z88.6 Allergy status to analgesic agent
CPT/HCPCS: 96365; J0696

== ENCOUNTER → 2023-03-28 | Outpatient (CLI) | payer BC ==
[~2023-03-28] MED LIST changes: +LIDOCAINE 1% MDV 20ML VIAL As Ordered ONE
[2023-03-28 08:12] VITALS: BP 166/98; TEMP 98.1; O2SAT 93
== END ==
LOC: M IRPRO 08:04
PROVIDERS: ATTEND Internal Medicine Infectious Disease
DX: A69.20 Lyme disease, unspecified (principal)
CPT/HCPCS: 36569; C1751

== ENCOUNTER → 2023-04-02 | Outpatient (REF) | payer BC ==
[~2023-04-02] MED LIST changes: -LIDOCAINE 1% MDV 20ML VIAL As Ordered ONE
[2023-04-02 11:55] LABS: BASO % 0.6 % (0.0-1.0); EOS # 0.2 10^3/uL (0.0-0.5); EOS % 2.8 % (0.0-3.0); HEMATOCRIT 39.4 % (42.0-52.0); HEMOGLOBIN 13.5 g/dl (13.5-17.5); LYMPH # 2.2 10^3/uL (1.5-5.0); LYMPH % 36.2 % (24.0-44.0); MEAN CORPUSCULAR HEMOGLOBIN 33.3 pg (27.0-33.0); MEAN CORPUSCULAR HGB CONC 34.3 g/dl (32.0-36.5); MEAN CORPUSCULAR VOLUME 97.3 fl (80.0-96.0); MONO # 0.6 10^3/uL (0.0-0.8); MONO % 9.9 % (2.0-8.0); NEUTROPHILS # 3.1 10^3/uL (1.5-8.5); NEUTROPHILS % 50.3 % (36.0-66.0); PLATELET COUNT, AUTOMATED 176 10^3/uL (150-450); RED BLOOD COUNT 4.05 10^6/uL (4.30-6.10); WHITE BLOOD COUNT 6.2 10^3/uL (4.0-10.0)
[2023-04-02 12:13] LABS: C REACTIVE PROTEIN QUANTITATIV < 0.40 MG/DL (<1.0)
[2023-04-02 12:15] LABS: ALKALINE PHOSPHATASE 62 U/L (46-116); ALT/SGPT 48 U/L (7.0-40); AST/SGOT 27 U/L (<34); BILIRUBIN,TOTAL 0.7 MG/DL (0.3-1.2); BLOOD UREA NITROGEN 13 MG/DL (9-23); CALCIUM LEVEL 8.3 MG/DL (8.3-10.6); CARBON DIOXIDE LEVEL 27 MMOL/L (20-31); CHLORIDE LEVEL 103 MMOL/L (98-107); CREATININE FOR GFR 0.68 MG/DL (0.70-1.30); GLOMERULAR FILTRATION RATE > 60.0 (>49); GLUCOSE, FASTING 228 MG/DL (74-106); POTASSIUM SERUM 3.9 MMOL/L (3.5-5.1); SODIUM LEVEL 139 MMOL/L (136-145); TOTAL PROTEIN 6.3 G/DL (5.7-8.2)
[2023-04-02 12:19] LABS: ERYTHROCYTE SEDIMENTATION RATE 36 mm/hr (0-20)
== END ==
LOC: M LAB REF 10:52
PROVIDERS: ATTEND Internal Medicine Infectious Disease
DX: A69.20 Lyme disease, unspecified (principal)

== ENCOUNTER → 2023-04-10 | Outpatient (REF) | payer BC ==
[2023-04-10 11:52] LABS: BASO # 0.1 10^3/uL (0.0-0.2); BASO % 1.5 % (0.0-1.0); EOS # 0.2 10^3/uL (0.0-0.5); EOS % 4.6 % (0.0-3.0); HEMATOCRIT 40.3 % (42.0-52.0); HEMOGLOBIN 13.7 g/dl (13.5-17.5); LYMPH # 1.9 10^3/uL (1.5-5.0); LYMPH % 39.9 % (24.0-44.0); MEAN CORPUSCULAR HEMOGLOBIN 32.8 pg (27.0-33.0); MEAN CORPUSCULAR VOLUME 96.4 fl (80.0-96.0); MONO # 0.7 10^3/uL (0.0-0.8); MONO % 15.5 % (2.0-8.0); NEUTROPHILS # 1.8 10^3/uL (1.5-8.5); NEUTROPHILS % 38.3 % (36.0-66.0); PLATELET COUNT, AUTOMATED 182 10^3/uL (150-450); RED BLOOD COUNT 4.18 10^6/uL (4.30-6.10); WHITE BLOOD COUNT 4.8 10^3/uL (4.0-10.0)
[2023-04-10 12:10] LABS: ERYTHROCYTE SEDIMENTATION RATE 30 mm/hr (0-20)
[2023-04-10 12:16] LABS: C REACTIVE PROTEIN QUANTITATIV < 0.40 MG/DL (<1.0)
[2023-04-10 12:17] LABS: ALBUMIN 3.3 G/DL (3.2-5.2); ALKALINE PHOSPHATASE 66 U/L (46-116); ALT/SGPT 31 U/L (7.0-40); AST/SGOT 21 U/L (<34); BILIRUBIN,TOTAL 0.9 MG/DL (0.3-1.2); BLOOD UREA NITROGEN 16 MG/DL (9-23); CALCIUM LEVEL 8.3 MG/DL (8.3-10.6); CARBON DIOXIDE LEVEL 28 MMOL/L (20-31); CHLORIDE LEVEL 105 MMOL/L (98-107); CREATININE FOR GFR 0.74 MG/DL (0.70-1.30); GLOMERULAR FILTRATION RATE > 60.0 (>49); GLUCOSE, FASTING 189 MG/DL (74-106); POTASSIUM SERUM 3.9 MMOL/L (3.5-5.1); SODIUM LEVEL 142 MMOL/L (136-145); TOTAL PROTEIN 6.6 G/DL (5.7-8.2)
== END ==
LOC: M LAB REF 11:17
PROVIDERS: ATTEND Internal Medicine Infectious Disease
DX: A69.20 Lyme disease, unspecified (principal)

== ENCOUNTER → 2023-10-04 | Outpatient (REF) | payer BC ==
[2023-10-04 19:03] LABS: HEMOGLOBIN A1c 6.7 % (4.0-6.0)
== END ==
LOC: M LABWUC 18:20
PROVIDERS: ATTEND Physician Assistant
DX: E11.9 Type 2 diabetes mellitus without complications (principal); R35.1 Nocturia
CPT/HCPCS: 36415; 83036; G0103

== ENCOUNTER → 2025-03-22 | Outpatient (CLI) | payer BC ==
[~2025-03-22] MED LIST changes: -CYCL5TAB PO; +CYCL5TAB4 PO; +GABA-1172 PO; -GABA-282 PO; -PRAV40TA2 PO; +PRAV40TA85 PO
== END ==
LOC: M PLAIMG 10:17
PROVIDERS: ATTEND Neurological Surgery
DX: M48.02 Spinal stenosis, cervical region (principal)

== ENCOUNTER → 2025-04-09 | Outpatient (CLI) | payer BC | LOC: M WUC 11:45 | PROVIDERS: ATTEND Physician Assistant | DX: Z01.818 Encounter for other preprocedural examination (principal) ==